=== PATIENT | female | born 2005 | race Caucasian/White ===

== ENCOUNTER 2023-06-20 08:23 | Emergency (ER) | payer MEDICAID ==
[~2023-06-20] VITALS: Ht 165.1 cm; Wt 70.3 kg
[2023-06-20 08:25] VITALS: TEMP 98.3
[2023-06-20 08:29] VITALS: BP 128/72; PULSE 88; RESP 18; O2SAT 96
[2023-06-20] MEDS: diphenhdrAMINE HCL 25 MG CAP PO ONE (09:34)
[2023-06-20] MEDS: FAMOTIDINE 20 MG TAB PO ONE (09:34)
[2023-06-20] MEDS: methylPREDNISolone SOD SUCC 125 MG/2 ML VL IM ONE (09:35)
[2023-06-20] MEDS ORDERED: PRED20TA2 PO (10:06)
[2023-06-20] MEDS ORDERED: HYDR-3682 PO (10:06)
[2023-06-20] MEDS ORDERED: CALA1SUS2 EX (10:06)
== END 2023-06-20 10:30 | disposition home or self-care (01) ==
LOC: ER 08:28
DX: T78.40XA Allergy, unspecified, initial encounter (principal); X58.XXXA Exposure to other specified factors, initial encounter
CPT/HCPCS: 96372; 99283; J2930